=== PATIENT | male | born 1960 ===

== ENCOUNTER 2017-10-20 21:03 | Emergency (ER) | payer SELFPAY ==
[2017-10-20 21:12] VITALS: BP 164/85; PULSE 75; RESP 20; TEMP 97.7; O2SAT 98
--- NOTE | 2017-10-20 21:25 | C.PDOC ---
History Of Present Illness 57 year old male presents to the ED c/o left finger pain and swelling. Patient reports he was working when a sheet rock slipped and bent his left 5th finger. Patient states he is right hand dominant. Patient denies weakness, numbness, fall, trauma, LOC, headache. Time Seen by Provider: 10/20/17 21:19 Chief Complaint (Nursing): Upper Extremity Problem/Injury History Per: Patient History/Exam Limitations: no limitations Onset/Duration Of Symptoms: Hrs Current Symptoms Are (Timing): Still Present Quality: "Pain" Severity: Mild Exacerbating Factor(s): Movement Recent travel outside of the [facility]: No Additional History Per: Patient Past Medical History Reviewed: Historical Data, Nursing Documentation, Vital Signs Vital Signs: Last Vital Signs Temp 97.7 F 10/20/17 21:07 Pulse 75 10/20/17 21:07 Resp 20 10/20/17 21:07 BP 164/85 H 10/20/17 21:07 Pulse Ox 98 10/20/17 22:00 - Medical History PMH: HTN Surgical History: No Surg Hx Family History: States: Unknown Family Hx - Social History Hx Alcohol Use: Yes Hx Substance Use: No Review Of Systems Constitutional: Negative for: Fever, Chills ENT: Negative for: Nose Discharge, Nose Congestion Cardiovascular: Negative for: Chest Pain Respiratory: Negative for: Cough Gastrointestinal: Negative for: Abdominal Pain Musculoskeletal: Positive for: Hand Pain Skin: Negative for: Rash Neurological: Negative for: Weakness, Numbness Physical Exam - Physical Exam Appears: Non-toxic, No Acute Distress Skin: Normal Color, Warm, Dry Head: Atraumatic, Normacephalic Eye(s): bilateral: Normal Inspection Nose: No Discharge Oral Mucosa: Moist Neck: Normal ROM, Supple Chest: Symmetrical Extremity: Normal ROM, Tenderness (5th PIP left hand ), Capillary Refill (< 2 seconds), No Deformity, Swelling (left hand 5th digit PIP) Pulses: Left Radial: Normal, Right Radial: Normal Neurological/Psych: Oriented x3, Normal Speech, Normal Motor, Normal Sensation Gait: Steady ED Course And Treatment O2 Sat by Pulse Oximetry: 98 (On RA) Pulse Ox Interpretation: Normal - Other Rad Left hand X-Ray X-Ray: Interpreted by Me, Viewed By Me Interpretation: Preliminary read shows no fractures but degenrative changes Orthopedic Time Out: Side verified, Site verified Medical Decision Making Medical Decision Making: Impression: left hand pain Plan: * Left hand X-Ray Xray shows no acute fracture, degenerative changes. Finger splint applied Disposition Counseled Patient/Family Regarding: Diagnosis, Need For Followup, Rx Given - Disposition Referrals: Jun Polo MD [Staff Provider] - Disposition: HOME/ ROUTINE Disposition Time: 22:00 Condition: GOOD Additional Instructions: Your xray was normal, no fracture. Please apply ice to area 15 minutes three times a day. Take Motrin as needed for pain every 6 hours, with food to not upset stomach. Follow up with orthopedic if pain persists over one week. Prescriptions: Ibuprofen [Motrin] 600 mg PO Q8 #30 tab Instructions: Contusion (DC) Forms: Gengo (Lithuanian) - POA Present On Arrival: Falls Or Trauma (injury to finger) - Clinical Impression Clinical Impression: Contusion of finger of left hand - PA / INTELLIGENCE OFFICER BASIC / Resident Statement MD/DO has reviewed & agrees with the documentation as recorded. - Scribe Statement The provider has reviewed the documentation as recorded by the Scribe Migel Tong All medical record entries made by the Scribe were at my direction and personally dictated by me. I have reviewed the chart and agree that the record accurately reflects my personal performance of the history, physical exam, medical decision making, and the department course for this patient. I have also personally directed, reviewed, and agree with the discharge instructions and disposition. Procedures - Orthopedic Splinting/Casting Injury #1 Side: left Upper Extremity Injury Location: finger Upper Extremity Immobilizer: aluminum form splint
--- NOTE | 2017-10-21 09:14 | RAD ---
PROCEDURE: Left small finger radiographs. HISTORY: pain s.p injury COMPARISON: None. TECHNIQUE: AP radiograph of the left hand, as well as spot oblique and lateral images of left small finger were obtained. FINDINGS: LEFT SMALL FINGER: Left small finger normal, without acute fracture of focal lesion. Remainder of the left hand (as seen on the AP view) is grossly unremarkable. JOINTS: Normal. SOFT TISSUES: Normal. OTHER FINDINGS: None. IMPRESSION: No acute fracture or dislocation.
== END 2017-10-20 22:03 | disposition home or self-care (01) ==
LOC: C.ER 21:03
DX: S60.052A Contusion of left little finger without damage to nail, initial encounter (principal); X50.9XXA Other and unspecified overexertion or strenuous movements or postures, initial encounter; Y92.89 Other specified places as the place of occurrence of the external cause; Y99.0 Civilian activity done for income or pay